=== PATIENT | female | born 1965 | race Caucasian/White ===

== ENCOUNTER 2020-08-07 09:15 | Outpatient (CLI) | payer OTHER, SELFPAY ==
--- NOTE | ~2020-08-07 | MM_ITS ---
EXAMINATION: MM screening [facility] w [facility]om HISTORY: Screening TECHNIQUE: Craniocaudal and mediolateral oblique 3-D tomosynthesis images were obtained and synthetic 2-D images were generated. CAD analysis was submitted and interpreted. COMPARISON: Comparison to multiple prior studies sequentially, with oldest reviewed study dated 11/18. BREAST PARENCHYMAL COMPOSITION: There are scattered areas of fibroglandular density. FINDINGS: There is no evidence of suspicious mass, calcification, or architectural distortion to sugg est malignancy in either breast. There has been no suspicious interval change. IMPRESSION: 1. No mammographic evidence of malignancy. 2. Recommend routine screening mammography in one year. BI-RADS Category 1: Negative Reviewed, dictated and finalized at location A. NE LATHE OPERATOR
== END 2020-08-07 09:16 | disposition home or self-care (01) ==
LOC: ANHIMG 09:18
PROVIDERS: PCP Family Medicine Adolescent Medicine; Visit Provider Obstetrics & Gynecology
DX: Z12.31 Encounter for screening mammogram for malignant neoplasm of breast (principal)
CPT/HCPCS: 77063; 77067

== ENCOUNTER 2021-10-29 10:27 | Outpatient (CLI) | payer OTHER, SELFPAY ==
--- NOTE | ~2021-10-29 | MM_ITS ---
EXAMINATION: MM screening [facility] BI w thom HISTORY: Screening mammogram TECHNIQUE: Craniocaudal and mediolateral oblique 3-D tomosynthesis images were obtained and synthetic 2-D images were generated. CAD analysis was submitted and interpreted. COMPARISON: 08/07/2020, 03/22/2019, 11/10/2017 BREAST PARENCHYMAL COMPOSITION: There are scattered areas of fibroglandular density. FINDINGS: There is no evidence of suspicious mass, calcification, or architectural distortion to sugg est malignancy in either breast. There has been no suspicious interval change. IMPRESSION: 1. No mammographic evidence of malignancy. 2. Recommend routine screening mammography in one year. BI-RADS Category 1: Negative Reviewed, dictated and finalized at location A. N RESOURCES EXECUTIVE
== END 2021-10-29 10:28 | disposition home or self-care (01) ==
LOC: ANHIMG 10:30
PROVIDERS: PCP Family Medicine Adolescent Medicine; Visit Provider Obstetrics & Gynecology
DX: Z12.31 Encounter for screening mammogram for malignant neoplasm of breast (principal)
CPT/HCPCS: 77063; 77067

== ENCOUNTER 2023-07-07 10:30 | Outpatient (CLI) | payer OTHER, SELFPAY ==
--- NOTE | ~2023-07-07 | MM_ITS ---
EXAMINATION: MM screening [facility] BI w thom HISTORY: Screening mammogram TECHNIQUE: Craniocaudal and mediolateral oblique 3-D tomosynthesis images were obtained and synthetic 2-D images were generated. CAD analysis was submitted and interpreted. COMPARISON: 10/29/2021, 08/07/2020, 03/22/2019 BREAST PARENCHYMAL COMPOSITION: There are scattered areas of fibroglandular density. FINDINGS: No suspicious mass, calcification, or architectural distortion are identified in either tapan ast to suggest malignancy. There has been no suspicious interval change. IMPRESSION: 1. No mammographic evidence of malignancy. 2. Recommend routine screening mammography in one year. BI-RADS Category 1: Negative Reviewed, dictated and finalized at location A.
== END 2023-07-07 10:31 | disposition home or self-care (01) ==
LOC: ANHIMG 10:32
PROVIDERS: PCP Family Medicine Adolescent Medicine; Visit Provider Obstetrics & Gynecology
DX: Z12.31 Encounter for screening mammogram for malignant neoplasm of breast (principal)
CPT/HCPCS: 77063; 77067

== ENCOUNTER 2024-07-18 08:45 | Outpatient (CLI) | payer OTHER, SELFPAY ==
--- NOTE | ~2024-07-18 | MM_ITS ---
EXAMINATION: MM screening [facility] w [facility] HISTORY: Screening TECHNIQUE: Craniocaudal and mediolateral oblique 3-D tomosynthesis images were obtained and synthetic 2-D images were generated. CAD analysis was submitted and interpreted. COMPARISON: Comparison to multiple prior studies sequentially, with oldest reviewed study dated 08/08. BREAST PARENCHYMAL COMPOSITION: Not dense: There are scattered areas of fibroglandular density. FINDINGS: There is no evidence of suspicious mass, calcification, or architectural distortion to sugg est malignancy in either breast. There has been no suspicious interval change. IMPRESSION: 1. No mammographic evidence of malignancy. 2. Recommend routine screening mammography in one year. BI-RADS Category 1: Negative Reviewed, dictated and finalized at location B.
== END 2024-07-18 08:46 | disposition home or self-care (01) ==
LOC: ANHIMG 08:46
PROVIDERS: PCP Family Medicine Adolescent Medicine; Visit Provider Obstetrics & Gynecology
DX: Z12.31 Encounter for screening mammogram for malignant neoplasm of breast (principal)
CPT/HCPCS: 77063; 77067

== ENCOUNTER 2025-07-27 08:18 | Outpatient (CLI) | payer OTHER, SELFPAY ==
--- NOTE | ~2025-07-27 | MM_ITS ---
EXAMINATION: MM screening [facility] BI w thom HISTORY: Screening TECHNIQUE: Craniocaudal and mediolateral oblique 3-D tomosynthesis images were obtained and synthetic 2-D images were generated. CAD analysis was submitted and interpreted. COMPARISON: Comparison to multiple prior studies sequentially, with oldest reviewed study dated 11/10/2017. BREAST PARENCHYMAL COMPOSITION: Not dense: There are scattered areas of fibroglandular density. FINDINGS: There is no evidence of suspicious mass, calcification, or architectural distortion to suggest malignancy in either breast. There has been no suspicious interval change. IMPRESSION: 1. No mammographic evidence of malignancy. 2. Recommend routine screening mammography in one year. BI-RADS Category 1: Negative Reviewed, dictated and finalized at location O.
== END 2025-07-27 08:19 | disposition home or self-care (01) ==
LOC: ANHFOHIMG 08:20
PROVIDERS: PCP Family Medicine Adolescent Medicine; Visit Provider Obstetrics & Gynecology
DX: Z12.31 Encounter for screening mammogram for malignant neoplasm of breast (principal)
CPT/HCPCS: 77063; 77067

== ENCOUNTER 2025-07-30 00:20 | Day surgery (SDC) | payer OTHER, SELFPAY ==
[2025-07-21 09:06] VITALS: BMI 32.3
[2025-07-30 09:01] VITALS: BP 125/92; PULSE 115; RESP 18; TEMP 36.7; O2SAT 99; BMI 32.1
--- NOTE | 2025-07-30 09:12 | SUR.PREOP ---
Patient's heart rate is 115. Patient asked if they have a history of an elevated heart rate. Patient stated no, its because I get nervous in hospitals and Im anxious for this procedure. notified of findings
[2025-07-30] MEDS: LACTATED RINGERS 1,000 ML 150 ML IV CONT (09:21)
--- NOTE | 2025-07-30 09:27 | SUR.PREOP ---
Patients blood sugar is 216. Patient stated that she feels fine, just super anxious and hasn't taken her metformin this morning. notified of patients blood sugar and findings. no new orders per
--- NOTE | 2025-07-30 09:31 | WPDANESEPPF ---
Anes - Initial Pre Proc Eval Procedure: Operation Date: 07/30/25 10:30 Proposed Procedures p Screening Colonoscopy - Babar Real MD Date/Time: 07/30/25 09:31 Surgeon: Babar Real MD Pre Op Diagnosis: Other fecal abnormalities Patient Data Age: 59 Gender: F Height: 1.55 m Weight: 77.2 kg Last Vital Signs Temp 36.7 C 07/30/25 09:01 Pulse 115 H 07/30/25 09:01 Resp 18 07/30/25 09:01 BP 125/92 H 07/30/25 09:01 Pulse Ox 99 07/30/25 09:01 O2 Del Method Room Air 07/30/25 09:01 Allergies Allergy/AdvReac Type Severity Reaction Status Date / Time buspirone Allergy Unknown Vomiting Verified 07/30/25 09:07 BUSPAR Allergy Unknown Vomiting Uncoded 06/01/25 09:21 NKFA Allergy Unknown unknown Uncoded 06/01/25 09:21 Home Medications ?Medication ?Instructions ?Recorded ?Confirmed ?Type ezetimibe 10 mg tablet 10 mg PO DAILY #90 tabs 03/17/24 07/30/25 Rx losartan 100 mg tablet 100 mg PO DAILY #90 tabs 03/17/24 07/30/25 Rx sertraline 50 mg tablet 50 mg PO DAILY #30 tabs 05/11/25 07/30/25 Rx metformin 500 mg tablet,extended 1,000 mg (2 x 500 mg) PO DAILY 06/01/25 07/30/25 Rx release 24 hr #180 tabs tirzepatide 2.5 mg/0.5 mL 2.5 mg (0.5 mL) subcut WEEKLY #2 mL 07/08/25 07/30/25 Rx subcutaneous pen injector (Mounjaro) Laboratory Tests 07/30/25 09:22 POC Capillary Glucose 216 H mg/dl (65-105) Patient hx anesthesia problems: none Family hx anesthesia problems: none Results Review: All pre-operative results and documents have been reviewed as part of the pre-operative evaluation. [facility] Past Medical History Medical History Screening mammogram, encounter for Screening mammogram, encounter for Hypertension High blood cholesterol Diabetes IBS (irritable bowel syndrome) Anxiety Abnormal Pap smear of cervix 05/04/98 LGSIL; 12/27/99 ASCUS;07/30/00 ASCUS Surgical History Surgical History History of ovarian cystectomy (10/16/01) exp laparotomy/rt ovarian cystectomy--extensive adhesiolysis History of exploratory laparotomy (10/16/01) exp laparotomy/rt ovarian cystectomy--extensive adhesiolysis History of colposcopy with cervical biopsy (05/27/98) Family History Family History Sibling Diabetes mellitus brother Cerebrovascular accident brother Acute myocardial infarction Colon polyp Depression Heart disease Hypertension Father Cerebrovascular accident Heart disease Acute myocardial infarction Mother Heart disease Depression Social History Social History Smoking status: Never smoker Second hand tobacco smoke exposure: No Alcohol intake: never Substance use: never Substance use type: does not use Do You Feel Safe in your Home?: Yes Lack of Transportation: No Lack of Food: Never True Current Housing: I Have Housing Concerned About Future Housing: No Difficulty Paying Gas/Electric Bills: No Difficulty Paying for Meds: No Currently Unemployed: No Education: High School Diploma/GED Difficulty w/ Childcare or Family Care: No Living arrangements: with family Additional living arrangements comments: Occupation/Education: occupation 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 Gender identity (if verbalized by the patient): Female Sexual Orientation (if Verbalized by the Patient): Straight or Heterosexual Spiritual care concerns: No Agree to blood products: Yes Anes - Eval Final PreProcedure Day of Procedure 07/30/25 09:31 Patient weight: obese Heart: regular rate and rhythm Lungs: clear to auscultation Airway: Mallampati scale class II Neurological: alert and oriented Last oral intake: >/= 8 hours ASA classification: III Emergent: no Anesthetic plan: proceed Anesthesia type and monitoring: general GIVS and standard monitoring Results Review: All pre-operative results and documents have been reviewed as part of the pre-operative evaluation. Informed Consent: The patient's anesthetic plan and its attendant risks and benefits were discussed with the patient/family/POA. Questions were solicited and answers provided to the satisfaction of the patient/family/POA.
--- NOTE | 2025-07-30 09:52 | P.HP_ITS ---
H&P: HPI History of Present Illness Date/Time: 07/30/25 09:52 Chief Complaint: Screening colonoscopy -occult blood in stools Narrative: This is the patient's first colonoscopy. She has recently been found to have a heme-positive stool with FIT test There are no GI symptoms and there is no family history of colorectal cancer. Review of Systems Review of Systems: All systems reviewed & are unremarkable except as noted in HPI and below PMFSH Past Medical History Medical History Screening mammogram, encounter for Screening mammogram, encounter for Hypertension High blood cholesterol Diabetes IBS (irritable bowel syndrome) Anxiety Abnormal Pap smear of cervix 05/04/98 LGSIL; 12/27/99 ASCUS;07/30/00 ASCUS Surgical History Surgical History History of ovarian cystectomy (10/16/01) exp laparotomy/rt ovarian cystectomy--extensive adhesiolysis History of exploratory laparotomy (10/16/01) exp laparotomy/rt ovarian cystectomy--extensive adhesiolysis History of colposcopy with cervical biopsy (05/27/98) Family History Family History Sibling Diabetes mellitus brother Cerebrovascular accident brother Acute myocardial infarction Colon polyp Depression Heart disease Hypertension Father Cerebrovascular accident Heart disease Acute myocardial infarction Mother Heart disease Depression Social History Social History Smoking status: Never smoker Second hand tobacco smoke exposure: No Alcohol intake: never Substance use: never Substance use type: does not use Do You Feel Safe in your Home?: Yes Lack of Transportation: No Lack of Food: Never True Current Housing: I Have Housing Concerned About Future Housing: No Difficulty Paying Gas/Electric Bills: No Difficulty Paying for Meds: No Currently Unemployed: No Education: High School Diploma/GED Difficulty w/ Childcare or Family Care: No Living arrangements: with family Additional living arrangements comments: Occupation/Education: occupation Additional occupation/education comments: business lawyer Gender identity (if verbalized by the patient): Female Sexual Orientation (if Verbalized by the Patient): Straight or Heterosexual Spiritual care concerns: No Agree to blood products: Yes Meds Home Medications and Allergies Home Medications ?Medication ?Instructions ?Recorded ?Confirmed ?Type ezetimibe 10 mg tablet 10 mg PO DAILY #90 tabs 03/0807/30/25 Rx losartan 100 mg tablet 100 mg PO DAILY #90 tabs 07/3107/30/25 Rx sertraline 50 mg tablet 50 mg PO DAILY #30 tabs 01/3007/30/25 Rx metformin 500 mg tablet,extended 1,000 mg (2 x 500 mg) PO DAILY 06/01/25 07/30/25 Rx release 24 hr #180 tabs tirzepatide 2.5 mg/0.5 mL 2.5 mg (0.5 mL) subcut WEEKL Y #2 mL 07/08/25 07/30/25 Rx subcutaneous pen injector (Cliveunconstancero) Allergies Allergy/AdvReac Type Severity Reaction Status Date / Time buspirone Allergy Unknown Vomiting Verified 07/30/25 09:07 BUSPAR Allergy Unknown Vomiting Uncoded 06/01/25 09:21 NKFA Allergy Unknown unknown Uncoded 06/01/25 09:21 Vital Signs Vital Signs - 24 hr 07/30/25 09:01 Temperature 98.1 F Pulse Rate 115 H Respiratory Rate 18 Blood Pressure 125/92 H Pulse Oximetry 99 Oxygen Delivery Room Air Exam Const: General: cooperative and healthy appearing Resp: Effort & Inspection: normal respiratory effort and able to speak in complete sentences Auscultation: clear to auscultation bilaterally Cardio: Rate: regular rate Rhythm: regular rhythm GI: Inspection: normal to inspection GI Palp: No No hepatosplenomegaly present Auscultation: normal bowel sounds Rectal Exam: deferred Skin: General skin exam: normal color Psych: Appearance: grossly normal Mental Status: mental status grossly normal Assessment and Plan Assessment and plan (1) Positive FIT (fecal immunochemical test): Code(s): R19.5 - Other fecal abnormalities Status: Acute Assessment and Plan: The patient is deemed a good candidate for the procedure. Consent signed. Will proceed.
--- NOTE | 2025-07-30 10:05 | S_PTH ---
PATIENT: Chrystal Comer LOC: [facility] U#:[id number] AGE/SX: 59/F ROOM: RE07/30/[address]: Babar Real MD : 1965 BED: DIS: 07/30/2025 SPEC #: [id number] RECD: 07/30/25 11:27 STATUS: KATHERYN REQ #: [id number] MICHAEL: 07/30/25 10:[address]: Babar Real DEPT: [facility] Surgical RECD BY: Jeanine Diggs ENTERED: 07/30/25 11:31 SP TYPE: Surgical OTHR DR: Barry Romero MD Tissues: A - Colon Polypectomy B - Colon Polypectomy C - Colon Polypectomy Procedures: Hematoxylin and Eosin Stain Gross and Microscopic Level 4 MLH1 MSH2 MSH6 PMS2
[2025-07-30 10:35] VITALS: BP 114/71; PULSE 77; RESP 20; O2SAT 100
[2025-07-30 10:45] VITALS: BP 114/81; PULSE 75; RESP 19; O2SAT 97
[2025-07-30 10:55] VITALS: BP 133/91; PULSE 74; RESP 17; O2SAT 100
== END 2025-07-30 11:14 | disposition home or self-care (01) ==
PROVIDERS: PCP Family Medicine Adolescent Medicine; Referring Provider Internal Medicine Gastroenterology; Visit Provider Internal Medicine Gastroenterology
PROC: 0DJD8ZZ Inspection of Lower Intestinal Tract, Via Natural or Artificial Opening Endoscopic (ICD-10-PCS; CPT 45378; principal; 2025-07-30 10:30)
DX: R19.5 Other fecal abnormalities (principal); C18.7 Malignant neoplasm of sigmoid colon; D12.3 Benign neoplasm of transverse colon; D12.2 Benign neoplasm of ascending colon; I10 Essential (primary) hypertension; E78.00 Pure hypercholesterolemia, unspecified; E11.9 Type 2 diabetes mellitus without complications; K58.9 Irritable bowel syndrome, unspecified; F41.9 Anxiety disorder, unspecified; E66.9 Obesity, unspecified; Z68.32 Body mass index [BMI] 32.0-32.9, adult; Z79.84 Long term (current) use of oral hypoglycemic drugs; Z79.85 Long-term (current) use of injectable non-insulin antidiabetic drugs; Z98.890 Other specified postprocedural states; Z83.719 Family history of colon polyps, unspecified; Z82.49 Family history of ischemic heart disease and other diseases of the circulatory system
CPT/HCPCS: 45381; 45385; 82948; 88305; 88342; J2704; J7120

== ENCOUNTER 2025-08-13 10:26 | Outpatient (CLI) | payer OTHER, SELFPAY ==
--- NOTE | ~2025-08-13 | CT_ITS ---
EXAM/PROCEDURE: CT chest abdomen pelvis w con HISTORY: mal rasheed of colon COMPARISON: None available. TECHNIQUE: Contrast enhanced CT of the chest abdomen and pelvis performed. FINDINGS: The lungs are clear with no pulmonary parenchymal metastatic disease or acute process. Heart and great vessels appear normal with no bulky lymphadenopathy or masses. Central large airways are patent. Bony thorax appears intact. In the abdomen and pelvis, no acute abnormality identified. In the gallbladder approach in the fundal region, there is a 1.8 x 1.9 x 1.0 cm focal soft tissue density noted. No calcified gallstones or gross evidence of cholecystitis noted. No bulky retroperitoneal or mesenteric lymphadenopathy or masses seen. The intestines are unopacified and nondistended. Solid organs appear intact. Appendix uterus and adnexal regions unremarkable. Urinary bladder appears normal. Vascular structures appear patent. Bones intact. IMPRESSION: 1. A 1.9 cm soft tissue density in the gallbladder may represent atypical sludge ball or correlation with right upper quadrant ultrasound is recommended. 2. No evidence of metastatic disease in the chest abdomen or pelvis otherwise identified. Reviewed, dictated and finalized at location A. ING INSTALLER IMPRESSION: 1. A 1.9 cm soft tissue density in the gallbladder may represent atypical sludg e ball or correlation with right upper quadrant ultrasound is recommended. 2. No evidence of metastatic disease in the chest abdomen or pelvis otherwise i dentified.
[2025-08-13 11:02] LABS: Estimated Glomerular Filt Rate > 60
== END 2025-08-13 10:27 | disposition home or self-care (01) ==
PROVIDERS: PCP Family Medicine Adolescent Medicine; Visit Provider Internal Medicine Gastroenterology
DX: C18.9 Malignant neoplasm of colon, unspecified (principal)
CPT/HCPCS: 71260; 74177; Q9967

== ENCOUNTER 2025-09-01 11:54 | Outpatient (CLI) | payer OTHER, SELFPAY ==
--- NOTE | ~2025-09-01 | PE_ITS ---
EXAMINATION: PET skull to mid thigh DATE: 09/01/2025 14:06 INDICATION: Malignant neoplasm of sigmoid colon TECHNIQUE: Blood glucose level was 134 mg/dL. 10.355 mCi of 18- fluorodeoxyglucose (18-FDG) was administered i.v. Low dose computed tomography (CT) images were acquired from the base of the brain to the proximal thighs for attenuation correction and anatomic localization. Positron emission tomography (PET) images were acquired in the same distribution beginning 63 minutes after injection. Images including fused PET/CT images were reconstructed in axial, coronal, and sagittal planes. Automated exposure control technique was employed. The dose-length product was 963.60mGy-cm. COMPARISON: CT dated 08/13/2025 FINDINGS: Head/neck: There is symmetric increased activity in the oral cavity, palatine tonsils, laryngeal muscles and ocular muscles without CT correlate, likely physiologic. No pathologically enlarged cervical lymphadenopathy or suspicious foci of increased FDG uptake in the visualized head or neck. Chest: Lungs are clear with no suspicious pulmonary nodules, pneumonia, pulmonary edema or other pulmonary infiltrates. No pleural effusion. Heart size is normal. No pericardial effusion. Thoracic aorta is normal in caliber. No pathologically enlarged or FDG avid thoracic lymphadenopathy. Abdomen/pelvis/proximal thighs: Physiologic renal accumulation and excretion of FDG activity in the kidneys, bladder and along portions of ureters. Normal degree and heterogenous pattern of increased uptake throughout the liver without radiologic correlate or dominant FDG avid lesion. 2.3 x 1.6 cm soft tissue density nodule in the fundus of the gallbladder with mild increased FDG activity with maximal SUV of 6.0 which is concerning for gallbladder cancer. The pancreas, spleen and bilateral adrenal glands are normal. Mild to moderate uptake scattered throughout the bowels without radiologic correlate, also likely physiologic. Normal appendix. No other abnormal foci of increased FDG uptake or pathologically enlarged lymphadenopathy in the abdomen, pelvis or proximal thighs. Musculoskeletal: No suspicious lytic, blastic or abnormally FDG avid bone lesions to suggest metastatic disease. IMPRESSION: 1. Moderate increased FDG uptake associated with a 2.3 x 1.6 cm nodular soft tissue density within the gallbladder fundus concerning for gallbladder cancer. 2. No other abnormally FDG avid lesions to suggest primary malignancy or metastatic disease. Reviewed, dictated and finalized at location A. ET CHANGER IMPRESSION: 1. Moderate increased FDG uptake associated with a 2.3 x 1.6 cm nodular soft ti ssue density within the gallbladder fundus concerning for gallbladder cancer. 2. No other abnormally FDG avid lesions to suggest primary malignancy or metast atic disease.
== END 2025-09-01 11:55 | disposition home or self-care (01) ==
PROVIDERS: PCP Family Medicine Adolescent Medicine; Visit Provider Surgery
DX: C18.7 Malignant neoplasm of sigmoid colon (principal)
CPT/HCPCS: 78815; A9552

== ENCOUNTER 2025-09-11 09:31 | Outpatient (CLI) | payer OTHER, SELFPAY ==
--- NOTE | ~2025-09-11 | US_ITS ---
Examination: US abdomen complete Clinical History: R93.89 - Abnormal findings on diagnostic imaging of other... . Comparison: PET/CT 09/01/2025 Technique: Complete abdominal sonography Findings: Liver: Enlarged. Echogenic. No intrahepatic biliary ductal dilatation. Normal hepatopedal flow main portal vein. Common duct: 11 mm. Gallbladder: No stones. Wall thickening. No pericholecystic fluid. Intraluminal mural-based mass. Spleen: Prominent. Pancreas: Unremarkable. Kidneys: Unremarkable. Aorta: No aneurysmal dilatation. Retrohepatic IVC: Unremarkable. IMPRESSION: 1. Gallbladder mass consistent with malignancy when correlated with uptake on PET/CT. 2. Hepatomegaly, with steatosis and/or hepatocellular disease. Reviewed, dictated and finalized at location R. KILN OPERATOR
== END 2025-09-11 09:32 | disposition home or self-care (01) ==
PROVIDERS: PCP Family Medicine Adolescent Medicine; Visit Provider Internal Medicine Gastroenterology
DX: R93.89 Abnormal findings on diagnostic imaging of other specified body structures (principal); K82.8 Other specified diseases of gallbladder; K76.89 Other specified diseases of liver; R16.0 Hepatomegaly, not elsewhere classified; E88.89 Other specified metabolic disorders
CPT/HCPCS: 76700